=== PATIENT | female | born 1950 | race Caucasian/White ===

== ENCOUNTER → 2022-11-22 | Outpatient (CLI) | payer MEDICARE ==
[2022-11-22 13:00] LABS: CHOLESTEROL 240 mg/dL (<200); HDL CHOLESTEROL 54 mg/dL (35-85); LDL DIRECT 153 mg/dL (0-99); TRIGLYCERIDES 158 mg/dL (30-200)
== END | disposition home or self-care (01) ==
LOC: LAB 08:16
PROVIDERS: ATTEND Student in an Organized Health Care Education/Training Program
DX: E78.5 Hyperlipidemia, unspecified (principal)
CPT/HCPCS: 36415; 80061

== ENCOUNTER → 2022-12-30 | Outpatient (CLI) | payer MEDICARE ==
[2022-12-30 12:10] LABS: BASOPHILS % (AUTO) 0.4 % (0.0-5.0); EOSINOPHILS % (AUTO) 2.4 % (0.0-8.0); HEMATOCRIT 41.6 % (36-48); LYMPHOCYTES % (AUTO) 19.7 % (21.0-51.0); MEAN CORPUSCULAR HEMOGLOBIN 29.3 pg (27.0-33.0); MEAN CORPUSCULAR HGB CONC 32.2 g/dL (32.0-36.0); MEAN CORPUSCULAR VOLUME 90.8 fL (79-99); MONOCYTES % (AUTO) 12.2 % (3.0-13.0); NEUTROPHILS % (AUTO) 64.6 % (40.0-77.0); PLATELET COUNT (AUTO) 298 K/uL (130-400); RED BLOOD CELL COUNT(AUTO) 4.58 MIL/uL (4.00-5.50); RED CELL DISTRIBUTION WIDTH 13.1 % (11.0-15.5); WHITE BLOOD COUNT (AUTO) 5.4 K/uL (4.8-10.8)
[2022-12-30 12:29] LABS: ALBUMIN 3.7 g/dL (3.5-5.0); CREATININE 0.9 mg/dL (0.5-1.5); MAGNESIUM 1.9 mg/dL (1.80-2.40); POTASSIUM 4.1 mmol/L (3.5-5.1); T4 (THYROXINE) 10.6 ug/dL (4.7-13.3); THYROID STIMULATING HORMONE 3.83 uIU/mL (0.36-3.74); TOTAL PROTEIN, SERUM 8.1 g/dL (6.0-8.3)
== END | disposition home or self-care (01) ==
LOC: LAB 08:04
PROVIDERS: ATTEND Student in an Organized Health Care Education/Training Program
DX: E78.5 Hyperlipidemia, unspecified (principal); I10 Essential (primary) hypertension
CPT/HCPCS: 36415; 80053; 80061; 83735; 84436; 84443; 85025

== ENCOUNTER → 2023-07-14 | Outpatient (CLI) | payer MEDICARE ==
[2023-07-14 12:32] LABS: CHOLESTEROL 257 mg/dL (<200); HDL CHOLESTEROL 68 mg/dL (35-85); LDL DIRECT 165 mg/dL (0-99); TRIGLYCERIDES 181 mg/dL (30-200)
== END | disposition home or self-care (01) ==
LOC: LAB 08:50
PROVIDERS: ATTEND Student in an Organized Health Care Education/Training Program
DX: E78.5 Hyperlipidemia, unspecified (principal)
CPT/HCPCS: 36415; 80061

== ENCOUNTER → 2024-12-21 | Outpatient (CLI) | payer MEDICARE ==
--- NOTE | 2024-12-21 18:15 | HMCIMG ---
EXAM: CR Lumbar Spine, 4 View. CLINICAL HISTORY: LBP COMPARISON: None provided. FINDINGS: BONES: No acute fracture or aggressive appearing osseous lesion. ALIGNMENT: Alignment is within normal limits. No significant scoliosis. DISCS / DEGENERATIVE CHANGES: There are mild multilevel degenerative changes with disc space narrowing, facet hypertrophy and small osteophytes. SOFT TISSUES: The soft tissues are unremarkable. IMPRESSION: No acute lumbar spine abnormality evident. Mild degenerative change. /[place]
== END | disposition home or self-care (01) ==
LOC: RAH 13:13
PROVIDERS: ATTEND Physical Medicine & Rehabilitation
DX: M47.816 Spondylosis without myelopathy or radiculopathy, lumbar region (principal); M48.061 Spinal stenosis, lumbar region without neurogenic claudication; M25.78 Osteophyte, vertebrae; M54.50 Low back pain, unspecified; M54.2 Cervicalgia
CPT/HCPCS: 72110; 72114

== ENCOUNTER → 2024-12-23 | Outpatient (CLI) | payer MEDICARE ==
--- NOTE | 2024-12-23 14:51 | HMCIMG ---
EXAM: CR Cervical spine, 5 View. CLINICAL HISTORY: Radiculopathy, cervical region COMPARISON: None provided. FINDINGS: BONES: No acute fracture or aggressive appearing osseous lesion. DISCS/DEGENERATIVE CHANGES: Moderate loss of the C5-C6 disc space and C6-C7 disc space. Mild to moderate anterior endplate marginal spurring most pronounced at C5, C6 and C7. No instability seen on lateral flexion/extension views. Mild facet arthrosis and uncovertebral apophysis spondylosis C5-C6 and C6-C7. The C1-C2 relationship is intact SOFT TISSUES: No prevertebral soft tissue swelling. The visualized lung apices are clear. Small 5 mm left neck soft tissue calcification likely carotid calcific atherosclerosis. IMPRESSION: 1. No acute osseous injury. 2. Moderate degenerative disc disease at C5-C6 and C6-C7 with anterior osteophytes and facet arthrosis. If there is a history of trauma recommend CT C-spine to rule out an acute fracture /[place]
== END | disposition home or self-care (01) ==
LOC: RAH 13:02
PROVIDERS: ATTEND Physical Medicine & Rehabilitation
DX: M47.22 Other spondylosis with radiculopathy, cervical region (principal); M50.122 Cervical disc disorder at C5-C6 level with radiculopathy; M50.123 Cervical disc disorder at C6-C7 level with radiculopathy; M46.02 Spinal enthesopathy, cervical region; M25.78 Osteophyte, vertebrae; M79.89 Other specified soft tissue disorders
CPT/HCPCS: 72050

== ENCOUNTER → 2025-02-28 | Outpatient (CLI) | payer MEDICARE ==
--- NOTE | 2025-03-01 13:38 | HMCIMG ---
EXAM: MR Cervical Spine Without Intravenous Contrast. CLINICAL HISTORY: Cervical radiculopathy. TECHNIQUE: Magnetic resonance images of the cervical spine in multiple planes. CONTRAST: None. COMPARISON: None. FINDINGS: The imaged posterior fossa is unremarkable. The craniocervical junction is intact. No acute fracture. Normal lordotic curvature. Mild multilevel spondylosis is evident by marginal osteophytes and facet joint arthropathy. Multilevel disc desiccation noted. Mild degenerative disc height reduction at the C5-C6 and C6-C7 levels. Normal vertebral body and remaining disc heights. Modic type II changes in the contiguous endplates at the C6-C7 level. The cervical cord is in an anatomic location. No abnormal signal involves the cord. No extra-axial masses. The surrounding soft tissues are unremarkable. Level by level, disease is present as follows: C1-C2: No osteoarthritis. C2-C3: 1 mm central disc osteophyte complex bulge causing mild indentation on the anterior thecal sac. No neural foraminal or lateral recess stenosis. C3-C4: No disc bulge or herniation. No neural foraminal, lateral recess, or spinal canal stenosis. C4-C5: No disc bulge or herniation. No neural foraminal, lateral recess, or spinal canal stenosis. C5-C6: 4 mm disc osteophyte complex bulge causing mild indentation on the anterior thecal sac and moderate to severe bilateral foraminal narrowing. No lateral recess stenosis. C6-C7: 4 mm left predominant disc osteophyte complex bulge causing mild indentation on the anterior thecal sac and moderate left foraminal narrowing. No lateral recess stenosis. C7-T1: 2 mm disc osteophyte complex bulge causing mild indentation on the anterior thecal sac. No neural foraminal or lateral recess stenosis. IMPRESSION: Mild multilevel spondylosis. Mild degenerative disc height reduction at the C5-C6 and C6-C7 levels. Modic type II changes in the contiguous endplates at the C6-C7 level. Mild indentation on the anterior thecal sac at the C2-C3 and C7-T1 levels. Mild indentation on the anterior thecal sac and moderate to severe bilateral foraminal narrowing at the C5-C6 level. Mild indentation on the anterior thecal sac and moderate left foraminal narrowing at the C6-C7 level. /[place]
== END | disposition home or self-care (01) ==
LOC: RAH 09:30
PROVIDERS: ATTEND Physical Medicine & Rehabilitation
DX: M47.22 Other spondylosis with radiculopathy, cervical region (principal); M50.11 Cervical disc disorder with radiculopathy, high cervical region; M50.122 Cervical disc disorder at C5-C6 level with radiculopathy; M50.123 Cervical disc disorder at C6-C7 level with radiculopathy; M50.33 Other cervical disc degeneration, cervicothoracic region; M25.78 Osteophyte, vertebrae
CPT/HCPCS: 72141

== ENCOUNTER → 2025-04-26 | Outpatient (CLI) | payer MEDICARE ==
--- NOTE | 2025-04-27 01:14 | HMCIMG ---
EXAM: CR LEFT KNEE, 3 VIEWS CLINICAL HISTORY: Left knee pain. COMPARISON: None provided TECHNIQUE: 3 views of the left knee were obtained. FINDINGS: Bones: Reduced bone density. Spiking of tibial spine. Focal enthesophyte at quadriceps tendon insertion site. No fracture or subluxation. No sclerotic or destructive changes observed. Joints: Preservation of the joint space. The articular surfaces are unremarkable. Soft tissues: Small osseous density in posterior soft tissues likely fabella. IMPRESSION: * Osteopenia. * No acute osseus injury seen. /[place]
== END | disposition home or self-care (01) ==
LOC: RAH 13:20
PROVIDERS: ATTEND Physical Medicine & Rehabilitation
DX: M76.892 Other specified enthesopathies of left lower limb, excluding foot (principal); M85.88 Other specified disorders of bone density and structure, other site; M25.562 Pain in left knee
CPT/HCPCS: 73562